=== PATIENT | male | born 1985 | race African-American/Black ===

== ENCOUNTER 2018-10-13 06:01 | Inpatient (IN) ==
[2018-10-13] MEDS ORDERED: SODIUM CHLORIDE 0.9% 1,000 ML IV STA ×2 (06:14→07:01)
[2018-10-13] MEDS ORDERED: KETOROLAC 30 MG/1 ML VIAL ONE (06:40)
[2018-10-13 06:42] LABS: Basophils % 0.3 % (0.0-0.8); Eosinophils # 0.2 10*3/uL (0.0-0.87); Eosinophils % 1.6 % (0.00-10.9); Hematocrit 43.7 VOL% (42.0-52.0); Hemoglobin 13.8 GM/DL (14.0-18.0); Immature Granulocytes % 0.3 %; Immature Granulocytes Absolute 0.04 #; Lymphocytes # 1.4 10*3/uL (1.4-4.0); Lymphocytes % 11.4 % (21.2-54.2); Mean Corpuscular HGB Conc 31.6 GM/DL (32-36); Mean Platelet Volume 11.3 FL (9.6-12.0); Monocytes % 9.8 % (1.7-12.7); Neutrophils % 76.6 % (38.7-73.9); Platelet Count 263 T/CUMM (130-400); Red Blood Count 5.08 MC/CUMM (3.8-5.5); Red Cell Distribution Width 14.1 % (9.3-17.3); White Blood Count 12.1 T/CUMM (4-12)
[2018-10-13] MEDS ORDERED: KETOROLAC 30 MG/1 ML VIAL IV STA (06:49)
[2018-10-13 06:54] LABS: Albumin 3.7 G/DL (3.4-5.0); Bilirubin,Total 0.4 MG/DL (0.2-1.0); Calcium 8.2 MG/DL (8.5-10.1); Osmolality,Calculated 277.7 MOS/KG (273-304); Total Protein 7.8 G/DL (6.4-8.3)
[2018-10-13 07:33] LABS: Apearance,Urine Clear (Clear); Bilirubin,Urine Negative (Negative); Blood, Urine Negative (Negative); Glucose,Urine (UA) Negative (Negative); Ketones,Urine Negative (Negative); Nitrite,Urine Negative (Negative); Protein,Urine Negative; RBC,Urine 1 /HPF (0-4); Urine Color Yellow (Yellow); Urine Specific Gravity 1.015 (1.001-1.035); Urine Urobilinogen < 0.2 EU/DL (0.2-1.0); WBC,Urine 1 /HPF (0-6)
[2018-10-13 07:34] LABS: Mucus,Urine Occasional /LPF (Occasional); Squamous Epithelial Cell,Urine Occasional /HPF (0-10)
[2018-10-13] MEDS: ENOXAPARIN 40 MG/0.4 ML SYRINGE SUBCUT SCH (07:55)
[2018-10-13] MEDS: PANTOPRAZOLE 40 MG VIAL IV SCH ×2 (07:57→12:11)
[2018-10-13 08:39] LABS: Risk Ratio 2.87; Thyroid Stimulating Hormone 2.06 uIU/ml (0.358-3.74); VLDL CHOLESTEROL 15.4 MG/DL
[2018-10-13] MEDS: SODIUM CHLORIDE 0.9% 1,000 ML IV SCH ×2 (08:51→17:58)
[2018-10-13] MEDS: MORPHINE 4 MG/1 ML VIAL IV PRN ×3 (09:48→19:31)
[2018-10-13] MEDS ORDERED: FOLIC ACID 1 MG TABLET PO SCH (12:00)
[2018-10-13] MEDS ORDERED: THIAMINE 100 MG TABLET PO SCH (12:00)
[2018-10-13] MEDS ORDERED: MULTIVITAMIN (BEROCCA) TABLET PO SCH (12:00)
[2018-10-13] MEDS: THIAMINE 200 MG/2 ML VIAL IV SCH (12:33)
[2018-10-13] MEDS: FOLIC ACID INJ 1 MG in SYRINGE 1 EACH IV SCH (12:56)
[2018-10-13] MEDS ORDERED: LORazepam 2 MG/1 ML VIAL IV PRN (13:44)
[2018-10-14] MEDS: MORPHINE 4 MG/1 ML VIAL IV PRN ×5 (00:03→19:32)
[2018-10-14] MEDS: SODIUM CHLORIDE 0.9% 1,000 ML IV SCH (02:30)
[2018-10-14 05:50] LABS: Basophils % 0.4 % (0.0-0.8); Eosinophils # 0.2 10*3/uL (0.0-0.87); Eosinophils % 2.3 % (0.00-10.9); Hemoglobin 13.1 GM/DL (14.0-18.0); Immature Granulocytes % 0.4 %; Immature Granulocytes Absolute 0.04 #; Lymphocytes # 1.9 10*3/uL (1.4-4.0); Lymphocytes % 18.8 % (21.2-54.2); Mean Corpuscular HGB Conc 31.2 GM/DL (32-36); Mean Corpuscular Volume 85.9 FL (87-102); Mean Platelet Volume 11.3 FL (9.6-12.0); Monocytes % 10.8 % (1.7-12.7); Neutrophils % 67.3 % (38.7-73.9); Platelet Count 234 T/CUMM (130-400); Red Blood Count 4.89 MC/CUMM (3.8-5.5); Red Cell Distribution Width 14.2 % (9.3-17.3)
[2018-10-14 05:58] LABS: Calcium 8.3 MG/DL (8.5-10.1); Osmolality,Calculated 274.7 MOS/KG (273-304)
[2018-10-14] MEDS: THIAMINE 200 MG/2 ML VIAL IV SCH (08:47)
[2018-10-14] MEDS: ENOXAPARIN 40 MG/0.4 ML SYRINGE SUBCUT SCH (08:48)
[2018-10-14] MEDS: PANTOPRAZOLE 40 MG VIAL IV SCH (08:48)
[2018-10-14] MEDS: FOLIC ACID INJ 1 MG in SYRINGE 1 EACH IV SCH (08:53)
[2018-10-14] MEDS: amLODIPine 5 MG TABLET PO SCH (08:54)
[2018-10-14] MEDS: LACTATED RINGERS 1,000 ML IV SCH ×2 (09:39→17:30)
[2018-10-14] MEDS: ONDANSETRON 4 MG/2 ML VIAL IV PRN (17:29)
[2018-10-14 22:44] LABS: Apearance,Urine CLEAR (Clear); Bacteria,Urine Occasional /HPF (Few); Bilirubin,Urine Negative (Negative); Blood, Urine Negative (Negative); Glucose,Urine (UA) Negative (Negative); Hyaline Casts,Urine 1 /LPF (0-3); Ketones,Urine 5 mg/dL (Negative); Mucus,Urine Occasional /LPF (Occasional); Nitrite,Urine Negative (Negative); Protein,Urine Negative; RBC,Urine 2 /HPF (0-4); Urine Color Straw (Yellow); Urine Specific Gravity 1.011 (1.001-1.035); Urine Urobilinogen < 2.0 EU/DL (0.2-1.0); WBC,Urine 1 /HPF (0-6)
[2018-10-15] MEDS: LACTATED RINGERS 1,000 ML IV SCH ×3 (01:05→19:07)
[2018-10-15] MEDS: MORPHINE 4 MG/1 ML VIAL IV PRN ×3 (01:05→21:56)
[2018-10-15 05:29] LABS: Calcium 8.2 MG/DL (8.5-10.1); Osmolality,Calculated 274.7 MOS/KG (273-304)
[2018-10-15 05:30] LABS: Basophils % 0.4 % (0.0-0.8); Eosinophils # 0.2 10*3/uL (0.0-0.87); Eosinophils % 1.7 % (0.00-10.9); Hematocrit 41.6 VOL% (42.0-52.0); Hemoglobin 12.9 GM/DL (14.0-18.0); Immature Granulocytes % 0.4 %; Immature Granulocytes Absolute 0.04 #; Lymphocytes # 1.8 10*3/uL (1.4-4.0); Lymphocytes % 17.6 % (21.2-54.2); Mean Corpuscular Volume 85.6 FL (87-102); Mean Platelet Volume 11.3 FL (9.6-12.0); Monocytes % 10.5 % (1.7-12.7); Neutrophils % 69.4 % (38.7-73.9); Platelet Count 258 T/CUMM (130-400); Red Blood Count 4.86 MC/CUMM (3.8-5.5); Red Cell Distribution Width 13.8 % (9.3-17.3); White Blood Count 10.4 T/CUMM (4-12)
[2018-10-15] MEDS: THIAMINE 200 MG/2 ML VIAL IV SCH (10:10)
[2018-10-15] MEDS: amLODIPine 5 MG TABLET PO SCH (10:10)
[2018-10-15] MEDS: FOLIC ACID INJ 1 MG in SYRINGE 1 EACH IV SCH (10:10)
[2018-10-15] MEDS: PANTOPRAZOLE 40 MG VIAL IV SCH (10:11)
[2018-10-15] MEDS: ENOXAPARIN 40 MG/0.4 ML SYRINGE SUBCUT SCH (10:12)
[2018-10-15] MEDS: DOXYCYCLINE HYCLATE 100 MG CAPSULE PO SCH ×2 (10:20→20:54)
[2018-10-15] MEDS ORDERED: cefTRIAXone 250 MG VIAL IM ONE (11:00)
[2018-10-15] MEDS: ONDANSETRON 4 MG/2 ML VIAL IV PRN (21:58)
[2018-10-16] MEDS: ONDANSETRON 4 MG/2 ML VIAL IV PRN ×2 (02:02→06:43)
[2018-10-16] MEDS: LACTATED RINGERS 1,000 ML IV SCH ×2 (02:10→12:21)
[2018-10-16] MEDS: MORPHINE 4 MG/1 ML VIAL IV PRN ×3 (03:22→12:18)
[2018-10-16] MEDS ORDERED: THIAMINE 100 MG TABLET PO SCH (09:00)
[2018-10-16] MEDS ORDERED: FOLIC ACID 1 MG TABLET PO SCH (09:00)
[2018-10-16] MEDS: PANTOPRAZOLE 40 MG VIAL IV SCH (10:16)
[2018-10-16] MEDS: DOXYCYCLINE HYCLATE 100 MG CAPSULE PO SCH (10:16)
[2018-10-16] MEDS: amLODIPine 5 MG TABLET PO SCH (10:16)
[2018-10-16] MEDS: ENOXAPARIN 40 MG/0.4 ML SYRINGE SUBCUT SCH (10:17)
[2018-10-16] MEDS ORDERED: amLODIPine 5 MG TABLET PO ONE (11:40)
[2018-10-16] MEDS ORDERED: TAMSULOSIN 0.4 MG CAPSULE PO SCH (12:00)
[2018-10-16 13:11] VITALS: BP 144/100
[2018-10-17] MEDS ORDERED: amLODIPine 10 MG TABLET PO SCH (09:00)
== END 2018-10-16 15:26 | disposition home or self-care (01) | DRG 440 ==
LOC: EDBD → EDUNIT# → N.ED 06:01 → N.EDINP 07:42 → SUATTDRO 07:42 → N.2E 13:24
PROVIDERS: ADMIT Internal Medicine; ATTEND Hospitalist

== ENCOUNTER 2020-07-28 08:58 | Observation (INO) ==
[2020-07-28] MEDS ORDERED: FUROSEMIDE 40 MG/4 ML VIAL IV STA (09:48)
[2020-07-28] MEDS ORDERED: hydrALAZINE 20 MG/1 ML VIAL IV STA (09:48)
[2020-07-28 10:04] LABS: ABG Base Excess 0.1 MMOL/L (-2.5-2.5); ABG HCO3 24.5 MMOL/L (20-26); ABG Oxygen Saturation 96.4 % (95-100); ABG PCO2 37.2 MM HG (35-48); ABG PH 7.422 (7.35-7.45)
[2020-07-28 10:19] LABS: Basophils % 0.5 % (0.0-0.8); Eosinophils # 0.3 10*3/uL (0.0-0.87); Eosinophils % 4.2 % (0.00-10.9); Hematocrit 41.6 VOL% (42.0-52.0); Hemoglobin 13.1 GM/DL (14.0-18.0); Immature Granulocytes % 0.3 %; Immature Granulocytes Absolute 0.02 #; Lymphocytes # 1.3 10*3/uL (1.4-4.0); Lymphocytes % 21.4 % (21.2-54.2); Mean Corpuscular HGB Conc 31.5 GM/DL (32-36); Mean Corpuscular Volume 86.1 FL (87-102); Mean Platelet Volume 10.9 FL (9.6-12.0); Monocytes % 15.7 % (1.7-12.7); Neutrophils % 57.9 % (38.7-73.9); Platelet Count 223 T/CUMM (130-400); Red Blood Count 4.83 MC/CUMM (3.8-5.5); Red Cell Distribution Width 14.4 % (9.3-17.3)
[2020-07-28 10:30] LABS: INR 1.1; PT Patient Result 11.3 SECS (9.8-11.9); Partial Thromboplastin Time 31.6 SECS (23.9-33.8)
[2020-07-28 10:41] LABS: Anisocytosis Slight; Band Neutrophils 14 % (0-10); Eosinophils 4 % (0-10); Lymphocytes 29 % (20-55); Platelet Estimate Normal; Segmented Neutrophils 42 % (50-85); Total Cells Counted 100
[2020-07-28 10:43] LABS: Albumin 3.3 G/DL (3.4-5.0); Bilirubin,Total 0.4 MG/DL (0.2-1.0); Calcium 8.6 MG/DL (8.5-10.1); Osmolality,Calculated 278.4 MOS/KG (273-304); Potassium 4.2 MMOL/L (3.5-5.1); Total Protein 7.3 G/DL (6.4-8.3)
[2020-07-28] MEDS ORDERED: DEXTROSE 50% 25 GM/50 ML VIAL IV PRN (12:18)
[2020-07-28] MEDS ORDERED: GLUCAGON 1 MG VIAL IM PRN (12:18)
[2020-07-28] MEDS ORDERED: hydrALAZINE 20 MG/1 ML VIAL IV PRN (12:18)
[2020-07-28] MEDS ORDERED: SIMETHICONE CHEW 125 MG TABLET PO PRN (12:18)
[2020-07-28] MEDS ORDERED: DOCUSATE SODIUM 100 MG CAPSULE PO PRN (12:18)
[2020-07-28] MEDS ORDERED: ACETAMINOPHEN 325 MG TABLET PO PRN (12:18)
[2020-07-28] MEDS ORDERED: ONDANSETRON 4 MG/2 ML VIAL IV PRN (12:18)
[2020-07-28] MEDS ORDERED: ENOXAPARIN 40 MG/0.4 ML SYRINGE SUBCUT SCH (12:30)
[2020-07-28 14:18] LABS: Thyroid Stimulating Hormone 1.27 uIU/ml (0.358-3.74)
[2020-07-28] MEDS ORDERED: INFLUENZA VIRUS VACCINE 0.5 ML SYRINGE IM ONE (16:24)
[2020-07-29 05:50] LABS: Basophils % 0.5 % (0.0-0.8); Eosinophils # 0.3 10*3/uL (0.0-0.87); Eosinophils % 4.4 % (0.00-10.9); Hematocrit 40.6 VOL% (42.0-52.0); Hemoglobin 12.9 GM/DL (14.0-18.0); Immature Granulocytes % 0.2 %; Immature Granulocytes Absolute 0.01 #; Lymphocytes # 1.8 10*3/uL (1.4-4.0); Lymphocytes % 29.8 % (21.2-54.2); Mean Corpuscular HGB Conc 31.8 GM/DL (32-36); Mean Corpuscular Volume 85.3 FL (87-102); Mean Platelet Volume 10.8 FL (9.6-12.0); Neutrophils % 49.1 % (38.7-73.9); Platelet Count 233 T/CUMM (130-400); Red Blood Count 4.76 MC/CUMM (3.8-5.5); Red Cell Distribution Width 14.4 % (9.3-17.3); White Blood Count 5.9 T/CUMM (4-12)
[2020-07-29 06:15] LABS: Albumin 3.1 G/DL (3.4-5.0); Bilirubin,Total 0.8 MG/DL (0.2-1.0); Calcium 8.6 MG/DL (8.5-10.1); Osmolality,Calculated 276.5 MOS/KG (273-304); Potassium 3.8 MMOL/L (3.5-5.1); Risk Ratio 3.92; Total Protein 7.3 G/DL (6.4-8.3)
[2020-07-29 08:20] LABS: Eosinophils 3 % (0-10); Lymphocytes 25 % (20-55); Segmented Neutrophils 64 % (50-85); Stomatocytes Few; Total Cells Counted 100
[2020-07-29 08:21] LABS: Platelet Estimate Normal; Polychromasia Slight
[2020-07-29 08:22] LABS: Atypical Lymphocytes 1+; Hypochromasia 1+; Microcytosis Slight
[2020-07-29] MEDS ORDERED: PANTOPRAZOLE 40 MG TABLET PO SCH (09:00)
[2020-07-29] MEDS ORDERED: FUROSEMIDE 40 MG/4 ML VIAL IV SCH (09:00)
[2020-07-29 12:35] VITALS: BP 172/94
== END 2020-07-29 14:00 | disposition home or self-care (01) ==
LOC: N.ED 08:58 → N.EDINP 08:58 → N.TELES 15:41
PROVIDERS: ADMIT Internal Medicine; ATTEND Internal Medicine